=== PATIENT | male | born 1965 | race Hispanic/Latino ===

== ENCOUNTER → 2018-08-05 | Outpatient (CLI) | payer BC, OTHER ==
[~2018-08-05] MED LIST: CEPH-578 PO; DIPH1TAB PO
== END | disposition home or self-care (01) ==
LOC: RAH 10:24
PROVIDERS: ATTEND Internal Medicine Gastroenterology
DX: K76.0 Fatty (change of) liver, not elsewhere classified (principal)
CPT/HCPCS: 76700

== ENCOUNTER 2018-08-26 07:18 | Day surgery (SDC) | payer OTHER ==
[2018-08-26] MEDS ORDERED: SODIUM CHLORIDE 0.9% 1000ML 1,000 ML IV ONE (09:01)
[2018-08-26] MEDS ORDERED: APIX5TAB PO (09:19)
[2018-08-26] MEDS ORDERED: MOME13HF2 IH (09:19)
[2018-08-26] MEDS ORDERED: ISOS30TA6 PO (09:19)
[2018-08-26] MEDS ORDERED: GABA-531 PO (09:19)
[2018-08-26] MEDS ORDERED: DIPH25TA20 PO (09:19)
[2018-08-26] MEDS ORDERED: MOME17N NS (09:19)
[2018-08-26] MEDS ORDERED: FISH1CAP27 PO (09:19)
[2018-08-26] MEDS ORDERED: FURO20TA4 PO (09:19)
[2018-08-26] MEDS ORDERED: LOSA50TA25 PO (09:19)
[2018-08-26] MEDS ORDERED: CALC-866 PO (09:19)
[2018-08-26] MEDS ORDERED: FERR159T2 PO (09:19)
[2018-08-26] MEDS ORDERED: SPIR25TA PO (09:19)
[2018-08-26] MEDS ORDERED: METO-391 PO (09:19)
[2018-08-26] MEDS ORDERED: FOLI1TAB15 PO (09:19)
[2018-08-26] MEDS ORDERED: MUPI22OI2 TP (09:19)
[2018-08-26] MEDS ORDERED: PROPOFOL 10 MG/ML 20ML VIAL IV ONE (09:38)
[2018-08-26] MEDS ORDERED: LIDOCAINE HCL 1% 20 ML VIAL ONE (09:42)
[2018-08-26 09:52] VITALS: BP 99/43
[2018-08-26 09:55] VITALS: BP 99/43
[2018-08-26 09:57] VITALS: BP 106/57
[2018-08-26 10:00] VITALS: BP 103/57
== END 2018-08-26 10:15 | disposition home or self-care (01) ==
LOC: DAH 07:18 → ENDO 07:18
PROVIDERS: ATTEND Internal Medicine Gastroenterology
DX: K29.50 Unspecified chronic gastritis without bleeding (principal); I10 Essential (primary) hypertension; Z68.44 Body mass index [BMI] 60.0-69.9, adult; Z79.899 Other long term (current) drug therapy; Z79.84 Long term (current) use of oral hypoglycemic drugs; Z98.890 Other specified postprocedural states; Z80.0 Family history of malignant neoplasm of digestive organs; K21.0 Gastro-esophageal reflux disease with esophagitis; K76.0 Fatty (change of) liver, not elsewhere classified; E66.01 Morbid (severe) obesity due to excess calories; E11.8 Type 2 diabetes mellitus with unspecified complications
CPT/HCPCS: 43239; 82948; 88305; A4606; J2704; J7030

== ENCOUNTER 2019-03-16 05:30 | Day surgery (SDC) | payer OTHER ==
[~2019-03-16] VITALS: Ht 172.7 cm; Wt 207.3 kg
[~2019-03-16 05:30] MED LIST changes: +APIX5TAB PO; +ATOR20TA65 PO; -CEPH-578 PO; -DIPH1TAB PO; +DIPH25TA20 PO; +FISH1CAP27 PO; +FURO20TA4 PO; +GABA-531 PO; +LOSA50TA64 PO; +METO-391 PO; +MOME13HF2 IH; +MOME17N NS; +SPIR25TA PO
[2019-03-16] MEDS ORDERED: SODIUM CHLORIDE 0.9% 1000ML 1,000 ML IV ONE (05:53)
[2019-03-16 06:11] VITALS: BP 121/46
[2019-03-16] MEDS ORDERED: CHOL50004 PO (06:23)
[2019-03-16] MEDS ORDERED: VICTOZA SQ (06:23)
[2019-03-16] MEDS ORDERED: PROPOFOL 10 MG/ML 20ML VIAL IV ONE ×2 (06:54→07:05)
[2019-03-16 07:19] VITALS: BP 110/64
[2019-03-16 07:24] VITALS: BP 115/68
[2019-03-16 07:29] VITALS: BP 119/72
[2019-03-16 07:31] VITALS: BP 116/74
== END 2019-03-16 07:58 | disposition home or self-care (01) ==
LOC: DAH 05:30
PROVIDERS: ATTEND Internal Medicine
DX: Z12.11 Encounter for screening for malignant neoplasm of colon (principal); D12.4 Benign neoplasm of descending colon; K63.5 Polyp of colon; K76.0 Fatty (change of) liver, not elsewhere classified; K29.70 Gastritis, unspecified, without bleeding; Z86.010 Personal history of colon polyps; E11.9 Type 2 diabetes mellitus without complications; I10 Essential (primary) hypertension; E66.01 Morbid (severe) obesity due to excess calories; K64.1 Second degree hemorrhoids; K57.30 Diverticulosis of large intestine without perforation or abscess without bleeding; Z79.899 Other long term (current) drug therapy; Z98.890 Other specified postprocedural states
CPT/HCPCS: 45380; 82948 ×2; 88305; 93005; A4606; J2704 ×2; J7030

== ENCOUNTER → 2019-07-16 | Outpatient (CLI) | payer OTHER ==
[~2019-07-16] MED LIST changes: -APIX5TAB PO; +CHOL50004 PO; +VICTOZA SQ
== END | disposition home or self-care (01) ==
LOC: RAH 11:37
PROVIDERS: ATTEND Internal Medicine Geriatric Medicine
DX: M16.11 Unilateral primary osteoarthritis, right hip (principal)
CPT/HCPCS: 73502

== ENCOUNTER 2019-10-05 05:38 | Emergency (ER) | payer OTHER ==
[2019-10-05] MEDS ORDERED: LIDOCAINE HCL 2% VISCOUS 15 ML UDCUP ONE (06:25)
[2019-10-05] MEDS ORDERED: MAG HYDROX/AL HYDROX/SIMETH ES 30 ML SUSP UDCUP ONE (06:25)
[2019-10-05] MEDS ORDERED: PREDNISONE 20 MG TABLET ONE (06:25)
[2019-10-05] MEDS ORDERED: ALBUTEROL SULFATE 0.083% 2.5 MG/3 ML INH IH ONE (06:35)
[2019-10-05] MEDS ORDERED: LORAZEPAM 2 MG/ML 1 ML VIAL ONE (09:04)
== END 2019-10-05 07:53 | disposition home or self-care (01) ==
LOC: EDH 05:38
DX: J45.21 Mild intermittent asthma with (acute) exacerbation (principal); R19.7 Diarrhea, unspecified; I10 Essential (primary) hypertension; E78.00 Pure hypercholesterolemia, unspecified; G89.29 Other chronic pain; M54.9 Dorsalgia, unspecified; Z90.49 Acquired absence of other specified parts of digestive tract
CPT/HCPCS: 71046; 93005; 94640; J2060

== ENCOUNTER → 2020-02-23 | Outpatient (CLI) | payer OTHER | END | disposition home or self-care (01) | LOC: RAH 13:31 | PROVIDERS: ATTEND Psychiatry & Neurology Neurology | DX: M19.011 Primary osteoarthritis, right shoulder (principal); G31.89 Other specified degenerative diseases of nervous system; R41.3 Other amnesia | CPT/HCPCS: 70450; 73030 ==

== ENCOUNTER → 2024-04-26 | Outpatient (CLI) | payer OTHER ==
[~2024-04-26] MED LIST changes: +MOME13HF12 IH; -MOME13HF2 IH; -MOME17N NS; +MOME17SP4 NS
== END | disposition home or self-care (01) ==
LOC: RAH 13:29
PROVIDERS: ATTEND Psychiatry & Neurology Neurology
DX: M47.22 Other spondylosis with radiculopathy, cervical region (principal); M47.26 Other spondylosis with radiculopathy, lumbar region; I72.8 Aneurysm of other specified arteries; M48.062 Spinal stenosis, lumbar region with neurogenic claudication; G43.909 Migraine, unspecified, not intractable, without status migrainosus; M48.02 Spinal stenosis, cervical region; M50.322 Other cervical disc degeneration at C5-C6 level; G31.9 Degenerative disease of nervous system, unspecified; G93.89 Other specified disorders of brain
CPT/HCPCS: 70544; 70551; 72141; 72148